=== PATIENT | female | born 1985 | race African-American/Black ===

== ENCOUNTER 2017-05-19 10:22 | Inpatient (IN) | payer OTHER ==
[2017-05-19] MEDS ORDERED: OXYTOCIN 30 UNITS/LR 500 ML IV (11:30)
[2017-05-19] MEDS ORDERED: LIDOCAINE 1% (MPF) 30 ML INJ INJ (11:30)
[2017-05-19] MEDS ORDERED: CARBOPROST 250 MCG INJ IM (11:30)
[2017-05-19] MEDS ORDERED: BUTORPHANOL 2 MG INJ IV ×2 (11:30)
[2017-05-19] MEDS ORDERED: LACTATED RINGER'S 1,000 ML IV (11:30)
[2017-05-19] MEDS ORDERED: MISOPROSTOL 200 MCG TAB PR (11:30)
[2017-05-19] MEDS: OXYTOCIN 30 UNITS/LR 500 ML IVPB (12:00)
[2017-05-19] MEDS: LACTATED RINGER'S 1,000 ML IV ×3 (12:16→23:56)
[2017-05-19] MEDS: AMPICILLIN 2 GM/NS (PMX) 100 ML IV (12:16)
[2017-05-19 12:38] LABS: ADD MAN DIFF? NO
[2017-05-19 12:39] LABS: WHITE BLOOD COUNT 8.7 10^3/ul (4.8-10.8)
[2017-05-19 12:40] LABS: BASOPHILS % 0.3 % (0.0-2.0); EOSINOPHILS # 0.1 10^3/ul (0.0-0.5); EOSINOPHILS % 1.3 % (0.0-7.0); HEMATOCRIT 37.2 % (37.0-47.0); HEMOGLOBIN 12.8 g/dl (12.0-16.0); LYMPHOCYTES % 23.2 % (15.0-51.0); MEAN CORPUSCULAR HGB CONC 34.4 g/dl (32.0-37.0); MEAN CORPUSCULAR VOLUME 90.1 fl (82.0-101.0); MEAN PLATELET VOLUME 11.3 fl (7.4-10.4); MONOCYTE # 0.8 10^3/ul (0.3-0.9); MONOCYTES % 9.2 % (0.0-11.0); NEUTROPHIL # 5.5 10^3/ul (1.6-7.5); NEUTROPHILS % 63.7 % (39.0-77.0); PLATELET COUNT 160 10^3/UL (140-415); RED BLOOD COUNT 4.13 10^6/ul (4.20-5.40); RED CELL DISTRIBUTION WIDTH 12.6 % (11.5-14.5)
[2017-05-19 13:06] LABS: INR 0.88; PT RATIO 0.9
[2017-05-19 13:09] LABS: PARTIAL THROMBOPLASTIN TIME 28.7 Sec (25.0-35.0)
[2017-05-19] MEDS: OXYTOCIN 30 UNITS/LR 500 ML IV (13:12)
[2017-05-19 15:12] LABS: RAPID PLASMA REAGIN NONREACTIVE (NR)
[2017-05-19 15:52] LABS: CANNABINOIDS Negative (NEGATIVE)
[2017-05-19 15:54] LABS: AMPHETAMINE/METHAMPHETAMINE Negative (NEGATIVE); BARBITURATES Negative (NEGATIVE); BENZODIAZEPINES Negative (NEGATIVE); COCAINE Negative (NEGATIVE); OPIATES Negative (NEGATIVE)
[2017-05-19] MEDS: AMPICILLIN 1 GM/NS (PMX) 50 ML IV ×3 (16:06→23:56)
[2017-05-20] MEDS ORDERED: DIPHENHYDRAMINE 50 MG INJ IV (00:30)
[2017-05-20] MEDS ORDERED: EPHEDrine SULFATE 50 MG/5 ML SYG IV (00:30)
[2017-05-20] MEDS ORDERED: NALOXONE (0.4 MG/ML) INJ IV (00:30)
[2017-05-20] MEDS ORDERED: ONDANSETRON 4 MG INJ IV (00:30)
[2017-05-20] MEDS: FENTAnyl 2MCG/ML-ROPIV 0.2% 100 ML BAG EPI ×4 (04:02→18:40)
[2017-05-20] MEDS: AMPICILLIN 1 GM/NS (PMX) 50 ML IV ×5 (04:28→20:45)
[2017-05-20] MEDS: LACTATED RINGER'S 1,000 ML IV ×2 (04:30→13:12)
[2017-05-20] MEDS: OXYTOCIN 30 UNITS/LR 500 ML IV ×2 (19:39→22:26)
[2017-05-20] MEDS ORDERED: OXYTOCIN 30 UNITS/LR 500 ML IV (20:00)
[2017-05-20] MEDS: LIDOCAINE 1% (MPF) 30 ML INJ INJ (22:08)
[2017-05-20] MEDS: METHYLERGONOVINE 0.2 MG INJ IM (22:08)
[2017-05-20] MEDS: IBUPROFEN 600 MG TAB PO (23:52)
[2017-05-21] MEDS ORDERED: METHYLERGONOVINE 0.2 MG INJ IM
[2017-05-21] MEDS ORDERED: ZOLPIDEM 5 MG TAB PO
[2017-05-21] MEDS ORDERED: MISOPROSTOL 200 MCG TAB PR
[2017-05-21] MEDS ORDERED: SENNA/DOCUSATE NA (8.6MG/50MG) TAB PO
[2017-05-21] MEDS ORDERED: OXYTOCIN 30 UNITS/LR 500 ML IV
[2017-05-21] MEDS ORDERED: OXYCODONE/ASPIRIN (4.88/325) TAB PO
[2017-05-21] MEDS ORDERED: CARBOPROST 250 MCG INJ IM
[2017-05-21] MEDS: WITCH HAZEL/GLYCERIN PAD PR (01:14)
[2017-05-21] MEDS: BENZOCAINE 20% 56 ML SPRAY TOP (01:14)
[2017-05-21] MEDS: LANOLIN 7 GM TUBE TOP (01:14)
[2017-05-21] MEDS: IBUPROFEN 600 MG TAB PO ×4 (05:36→17:22)
[2017-05-21] MEDS: LACTATED RINGER'S 1,000 ML IV* ×2 (07:37)
[2017-05-21] MEDS: SENNA/DOCUSATE NA (8.6MG/50MG) TAB PO ×2 (08:34→20:49)
[2017-05-21 08:52] LABS: ADD MAN DIFF? NO
[2017-05-21 08:55] LABS: BASOPHILS % 0.1 % (0.0-2.0); EOSINOPHILS # 0.1 10^3/ul (0.0-0.5); EOSINOPHILS % 0.6 % (0.0-7.0); HEMATOCRIT 33.9 % (37.0-47.0); HEMOGLOBIN 11.6 g/dl (12.0-16.0); LYMPHOCYTES % 14.6 % (15.0-51.0); MEAN CORPUSCULAR HEMOGLOBIN 31.4 pg (29.0-33.0); MEAN CORPUSCULAR HGB CONC 34.2 g/dl (32.0-37.0); MEAN CORPUSCULAR VOLUME 91.6 fl (82.0-101.0); MEAN PLATELET VOLUME 10.6 fl (7.4-10.4); MONOCYTE # 1.3 10^3/ul (0.3-0.9); MONOCYTES % 9.6 % (0.0-11.0); NEUTROPHILS % 74.7 % (39.0-77.0); PLATELET COUNT 149 10^3/UL (140-415); RED CELL DISTRIBUTION WIDTH 12.5 % (11.5-14.5)
[2017-05-21 08:55] LABS: WHITE BLOOD COUNT 13.4 10^3/ul (4.8-10.8)
[2017-05-21] MEDS: OXYCODONE/ASPIRIN (4.88/325) TAB PO (14:13)
[2017-05-22] MEDS: IBUPROFEN 600 MG TAB PO ×3 (00:02→12:28)
[2017-05-22] MEDS: SENNA/DOCUSATE NA (8.6MG/50MG) TAB PO (09:00)
[2017-05-22] MEDS: DIPHTH/TET/ACEL PERTUSS (ADULT) 0.5 ML VIAL IM* (09:18)
== END 2017-05-22 15:10 | disposition home or self-care (01) | DRG 775 ==
LOC: OBT 10:22 → PP1 05-21 00:36 → L-D 10:22 → OBT 11:35 → L-D 11:25
PROVIDERS: Obstetrics & Gynecology
PROC: 10E0XZZ Delivery of Products of Conception, External Approach (ICD-10-PCS; principal; 2017-05-20)
PROC: 0HQ9XZZ Repair Perineum Skin, External Approach (ICD-10-PCS; 2017-05-20)
PROC: 3E033VJ Introduction of Other Hormone into Peripheral Vein, Percutaneous Approach (ICD-10-PCS; 2017-05-20)
DX: O48.0 Post-term pregnancy (principal); O70.0 First degree perineal laceration during delivery; Z37.0 Single live birth; Z3A.40 40 weeks gestation of pregnancy
CPT/HCPCS: 62319; 76815; 80307; 85025; 85610; 85730; 86592; 86900; 86901; 90715